=== PATIENT | male | born 1960 | race African-American/Black ===

== ENCOUNTER 2018-01-24 09:11 | Outpatient (CLI) | payer BC ==
[2018-01-24] MEDS ORDERED: Gadobenate Dimeglumine 529 MG/1 ML (20ML VIAL) ONE (11:29)
== END 2018-01-24 09:12 | disposition home or self-care (01) ==
LOC: BICMRI 09:11
PROVIDERS: ATTEND Otolaryngology Plastic Surgery within the Head & Neck
DX: H81.20 Vestibular neuronitis, unspecified ear (principal)
CPT/HCPCS: 70553; A9579

== ENCOUNTER 2018-04-09 07:54 | Outpatient (CLI) | payer BC | END 2018-04-09 07:55 | disposition home or self-care (01) | LOC: BICCT 07:54 | PROVIDERS: ATTEND Neurological Surgery | DX: I67.1 Cerebral aneurysm, nonruptured (principal); I66.22 Occlusion and stenosis of left posterior cerebral artery | CPT/HCPCS: 70496; 93880 ==

== ENCOUNTER 2023-09-25 08:09 | Outpatient (CLI) | payer MEDICARE | END 2023-09-25 08:10 | disposition home or self-care (01) | LOC: ULT 08:09 | PROVIDERS: ATTEND Internal Medicine Nephrology | DX: I12.9 Hypertensive chronic kidney disease with stage 1 through stage 4 chronic kidney disease, or unspecified chronic kidney disease (principal); N18.30 Chronic kidney disease, stage 3 unspecified; N28.1 Cyst of kidney, acquired | CPT/HCPCS: 76770; 93975 ==